=== PATIENT | female | born 1995 | race Two or more races ===

== ENCOUNTER 2023-12-31 18:02 | Emergency (ER) | payer OTHER ==
[~2023-12-31] VITALS: Ht 157.5 cm; Wt 65.8 kg
[~2023-12-31 18:02] MED LIST: FOLIC ACID0.4 MG; KEFLEX500 MG PO; MACROBID 100 M100 MG PO; PRENATAL COMPLE1 TAB; ZOFRAN4 MG PO
[2023-12-31] MEDS ORDERED: ACETAMINOPHEN 500 MG GEL..CAP PO ONE ×2 (19:15→19:19)
[2023-12-31 19:34] LABS: HEMATOCRIT 34.5 % (36.0-45.00); HEMOGLOBIN 11.5 g/dL (12.0-15.00); MEAN CELL VOLUME 80.5 fL (80.00-100.00); MEAN CORPUSCULAR HEMOGLOBIN 26.9 pg (27.00-32.0); MEAN CORPUSCULAR HGB CONC 33.5 g/dl (32.0-36.0); PLATELET COUNT 228 K/uL (150-450); RED BLOOD COUNT 4.28 M/uL (4.00-6.00); RED CELL DISTRIBUTION WIDTH 13.6 % (11.5-14.5)
[2023-12-31 19:39] LABS: URINE APPEARANCE Clear; URINE BILIRRUBIN Negative (NEGATIVE); URINE BLOOD Negative; URINE COLOR Yellow; URINE GLUCOSE Negative (NEGATIVE); URINE LEUKOCYTE Trace; URINE NITRATE Negative; URINE PROTEIN Negative (NEGATIVE)
[2023-12-31 19:42] LABS: URINE BACTERIA 616.1 uL (0.0-1933); URINE EPITHELIAL CELLS 26.2 uL (0.0-38.8); URINE WBC 24.7 uL (0.0-23.2)
[2023-12-31 20:10] LABS: URINE RBC 1.5 uL (0.0-20.8)
[2023-12-31 20:44] LABS: CALCIUM 8.4 mg/dL (8.5-10.1); CREATININE SERUM 0.54 mg/dL (0.55-1.02); GFR 133.47; POTASSIUM 3.57 mEq/L (3.5-5.1)
== END 2023-12-31 22:09 | disposition home or self-care (01) ==
LOC: ER 18:03
PROVIDERS: Emergency Medicine
DX: O26.892 Other specified pregnancy related conditions, second trimester (principal); R51.9 Headache, unspecified; Z3A.14 14 weeks gestation of pregnancy; Z20.822 Contact with and (suspected) exposure to COVID-19

== ENCOUNTER 2024-04-25 13:05 | Outpatient (CLI) | payer OTHER ==
[2024-04-25 12:30] VITALS: BP 107/70
[2024-04-25 16:17] VITALS: BP 104/66
[2024-04-25 20:25] VITALS: BP 117/74
[2024-04-25 23:43] VITALS: BP 96/59
[2024-04-26 04:33] VITALS: BP 92/56
[2024-04-26 07:38] VITALS: BP 106/71
[2024-04-26 08:33] VITALS: BP 104/71
== END 2024-04-26 09:15 | disposition home or self-care (01) ==
LOC: OBS/DEL 13:05
PROVIDERS: ATTEND Specialist
DX: O26.893 Other specified pregnancy related conditions, third trimester (principal); Z3A.31 31 weeks gestation of pregnancy

== ENCOUNTER 2024-06-21 05:13 | Inpatient (IN) | payer OTHER ==
[~2024-06-21] VITALS: Ht 157.5 cm; Wt 78.5 kg
[2024-06-21 05:27] VITALS: BP 118/78
[2024-06-21] MEDS ORDERED: RINGERS SOLUTION,LACTATED 1,000 ML IV SCH (07:00)
[2024-06-21] MEDS ORDERED: OXYTOCIN 500 ML IV SCH (07:00)
[2024-06-21 07:07] LABS: HEMATOCRIT 31.5 % (36.0-45.00); HEMOGLOBIN 10.7 g/dL (12.0-15.00); MEAN CELL VOLUME 79.8 fL (80.00-100.00); MEAN CORPUSCULAR HEMOGLOBIN 27.1 pg (27.00-32.0); MEAN CORPUSCULAR HGB CONC 33.9 g/dl (32.0-36.0); PLATELET COUNT 198 K/uL (150-450); RED BLOOD COUNT 3.95 M/uL (4.00-6.00); RED CELL DISTRIBUTION WIDTH 15.2 % (11.5-14.5)
[2024-06-21 07:23] LABS: INR < 0.93; PARTIAL THROMBOPLASTIN TIME 24.3 SECONDS (22.0-34.0); PROTHROMBIN TIME 9.8 SECONDS (9.0-11.5)
[2024-06-21] MEDS ORDERED: OXYTOCIN 20 UNITS/500ML RL PIGGYBAG IV ONE (07:24)
[2024-06-21 07:27] LABS: PH,URINE 6.5 (5.0-8.0); URINE APPEARANCE Clear; URINE BILIRRUBIN Negative (NEGATIVE); URINE BLOOD Negative; URINE COLOR Yellow; URINE GLUCOSE Negative (NEGATIVE); URINE KETONE Negative (NEGATIVE); URINE LEUKOCYTE Large; URINE NITRATE Negative; URINE PROTEIN Negative (NEGATIVE)
[2024-06-21 07:30] LABS: URINE BACTERIA 1961.9 uL (0.0-1933); URINE EPITHELIAL CELLS 66.6 uL (0.0-38.8); URINE RBC 6.6 uL (0.0-20.8); URINE WBC 72.3 uL (0.0-23.2)
[2024-06-21 07:39] VITALS: BP 137/83
[2024-06-21 07:53] LABS: ALBUMIN 2.6 gm/dL (3.4-5.0); BILIRUBIN TOTAL 0.4 mg/dL (0.3-1.2); CREATININE SERUM 0.44 mg/dL (0.55-1.02); GFR 167.9; POTASSIUM 4.01 mEq/L (3.5-5.1); TOTAL PROTEIN 6.6 gm/dL (6.4-8.2)
[2024-06-21] MEDS ORDERED: PROMETHAZINE HCL 25 MG/ML AMPUL ONE (09:44)
[2024-06-21] MEDS ORDERED: MEPERIDINE HCL/PF 50 MG/ML VIAL IV ONE (10:00)
[2024-06-21] MEDS ORDERED: PROMETHAZINE HCL 25 MG/ML AMPUL IV ONE (10:00)
[2024-06-21] MEDS ORDERED: ERYTHROMYCIN BASE OPHT 1GM EACH TUBE OP ONE ×2 (11:09→12:00)
[2024-06-21] MEDS ORDERED: OXYTOCIN 20 UNITS/1000ML RL PIGGYBAG IV ONE ×2 (11:09→12:00)
[2024-06-21] MEDS ORDERED: CHLORHEXIDINE GLUCONATE 120 ML BOTTLE TOP ONE ×2 (11:10→12:00)
[2024-06-21] MEDS ORDERED: LIDOCAINE HCL 1% 10ML VIAL ONE (11:10)
[2024-06-21] MEDS ORDERED: OxyCODONE HCL/APAP UD (PERCOCET) PO PRN (12:00)
[2024-06-21] MEDS ORDERED: ACETAMINOPHEN 325 MG TABLET PO PRN (12:00)
[2024-06-21] MEDS ORDERED: BENZOCAINE/MENTHOL 90 ML BOTTLE TOP SCH (13:00)
[2024-06-21] MEDS ORDERED: METHYLERGONOVINE MALEATE 0.2 MG/ML AMPUL ONE (14:28)
[2024-06-21] MEDS ORDERED: METHYLERGONOVINE MALEATE 0.2 MG/ML AMPUL IM STA (14:42)
[2024-06-21 15:24] VITALS: BP 121/75
[2024-06-21 16:41] VITALS: BP 101/69
[2024-06-21] MEDS ORDERED: HYDROCORTISONE 2.5% 30 GM TUBE RECTAL SCH (17:00)
[2024-06-22 00:58] VITALS: BP 108/72
[2024-06-22 01:57] LABS: MEAN CELL VOLUME 80.4 fL (80.00-100.00); MEAN CORPUSCULAR HGB CONC 33.5 g/dl (32.0-36.0); PLATELET COUNT 202 K/uL (150-450); RED BLOOD COUNT 3.61 M/uL (4.00-6.00)
[2024-06-22 02:12] LABS: HEMOGLOBIN 9.7 g/dL (12.0-15.00); MEAN CORPUSCULAR HEMOGLOBIN 26.8 pg (27.00-32.0)
[2024-06-22 07:58] VITALS: BP 124/84
[2024-06-22 15:14] VITALS: BP 130/83
[2024-06-23 00:31] VITALS: BP 117/78
[2024-06-23 08:00] VITALS: BP 124/85
== END 2024-06-23 14:56 | disposition home or self-care (01) | DRG 798 ==
LOC: OB/GYN 05:13 → LDR 05:13 → OB/GYN 12:20
PROVIDERS: ADMIT Specialist; ATTEND Specialist
PROC: 10E0XZZ Delivery of Products of Conception, External Approach (ICD-10-PCS; principal; 2024-06-21)
PROC: 4A1HXCZ Monitoring of Products of Conception, Cardiac Rate, External Approach (ICD-10-PCS; 2024-06-21)
PROC: 0UB70ZZ Excision of Bilateral Fallopian Tubes, Open Approach (ICD-10-PCS; 2024-06-22)
DX: O80 Encounter for full-term uncomplicated delivery (principal); Z37.0 Single live birth; Z3A.38 38 weeks gestation of pregnancy; Z20.822 Contact with and (suspected) exposure to COVID-19; Z30.2 Encounter for sterilization